=== PATIENT | female | born 1975 | race Hispanic/Latino ===

== ENCOUNTER 2019-01-14 20:33 | Emergency (ER) | payer MEDICAID, OTHER ==
[2019-01-14] MEDS ORDERED: Famotidine 20 MG TAB ONE (20:51)
[2019-01-14] MEDS ORDERED: hydrOXYzine 25 MG TAB ONE (20:51)
[2019-01-14] MEDS ORDERED: Dexamethasone 10 MG/ML VIAL ONE (20:51)
== END 2019-01-14 21:05 | disposition home or self-care (01) ==
LOC: ERS 20:33
DX: L50.9 Urticaria, unspecified (principal)
CPT/HCPCS: 99282; J1100